=== PATIENT | male | born 1975 | race Caucasian/White ===

== ENCOUNTER 2020-05-27 13:09 | Outpatient (CLI) | payer OTHER, SELFPAY ==
--- NOTE | 2020-05-27 13:31 | CT_ITS ---
WS: [id number] CT scan of the head, 05/27/2020 Clinical Data: THUNDERCLAP HEADACHE Comparison: None. DLP: 925.[address] scans at [facility] use at least one of these dose optimization techniques: automat ed exposure control; mA and/or kV adjustment per patient size (includes targeted exams where dose is matched to clinical indication); or iterative reconstruction. Findings: The ventricular system is normal without shift. No recent infarct or hemorrhage is seen. There are no abnormal intracerebral masses. The cerebellum and brainstem are not remarkable. Bony windows of the skull and skull base show no fractures or erosions. The mastoid air cells, international sales manager al auditory canals, sella turcica, intraorbital contents, and paranasal sinuses are unremarkable. CT/CT head wo con* [id number] Impression: Negative CT scan of the head
== END 2020-05-27 13:10 | disposition home or self-care (01) ==
LOC: RADWPI 13:13
PROVIDERS: Family Provider Family Medicine; PCP Family Medicine; Visit Provider Family Medicine
DX: G44.53 Primary thunderclap headache (principal)
CPT/HCPCS: 70450

== ENCOUNTER 2020-05-28 12:58 | Outpatient (CLI) | payer OTHER, SELFPAY ==
--- NOTE | 2020-05-28 10:30 | CT_ITS ---
WS: [id number] CT scan of the head with IV contrast. Additional two-dimensional coronal and sagittal reconstruction was performed. MIP images were also performed. 05/28/2020 Clinical Data: Rule out Aneurysm Comparison: CT head, 05/27/2020 DLP: 429.[address] scans at [facility] use at least one of these dose optimization techniques: automat ed exposure control; mA and/or kV adjustment per patient size (includes targeted exams where dose is matched to clinical indication); or iterative reconstruction. Findings: The internal carotid arteries bifurcate normally into the anterior and middle cerebral arteries. No a neurysms are seen. There are no occlusions or stenoses. The basilar artery bifurcates normally into t he posterior cerebral arteries. No aneurysms are seen. The posterior communicating arteries appear to be normal. No recent infarct or hemorrhage is seen. The ventricular stem is normal. No abnormal cont rast enhancement of any structural curves. The cerebellum and brainstem are unremarkable. There are n o abnormal intracerebral masses. The mastoid air cells, internal auditory canals, sella turcica and i ntraorbital contents are normal. There is opacification of the inferior aspect of the left maxillary sinus consistent with chronic sinusitis. CT/CT angio head [id number] Impression: 1. Normal intracranial arterial circulation with no evidence of aneurysm or hem orrhage. 2. Negative for intracerebral abnormality. 3. Incidental chronic left maxillary sinusitis.
[2020-05-28] MEDS: iohexol 350 mg/mL 100 mL Btl IV (13:23)
== END 2020-05-28 12:59 | disposition home or self-care (01) ==
LOC: RADWPI 13:01
PROVIDERS: Family Provider Family Medicine; PCP Family Medicine; Visit Provider Specialist
DX: I72.9 Aneurysm of unspecified site (principal); J32.0 Chronic maxillary sinusitis; G44.53 Primary thunderclap headache
CPT/HCPCS: 70496; 96374; 96375; 99205; J1110; J1200; Q0162; Q9967

== ENCOUNTER → 2021-05-08 12:13 | Outpatient (BNVA) | payer OTHER, SELFPAY | PROVIDERS: PCP Family Medicine; Visit Provider Nurse Practitioner Family | DX: S99.922A Unspecified injury of left foot, initial encounter (principal); W20.8XXA Other cause of strike by thrown, projected or falling object, initial encounter; Z68.32 Body mass index [BMI] 32.0-32.9, adult | CPT/HCPCS: 73630 ==

== ENCOUNTER 2021-07-30 10:30 | Outpatient (CLI) | payer OTHER, SELFPAY ==
--- NOTE | 2021-07-30 10:35 | XR_ITS ---
WS: [id number] XR bone survey* [id number] REASON FOR EXAM: SACRAL BLASTIC LESION FINDINGS: The sacral blastic lesion is demonstrated to be a benign bone island in the posterior right iliac w ing adjacent to the sacral iliac joint on a CT scan of 09/20/2018. No change since then. Multiple images of the appendicular and axial skeleton demonstrate no significant bony abnormality. XR/XR bone survey* [id number] IMPRESSION: Benign bone lesion right iliac wing. Negative bone survey.
== END 2021-07-30 10:31 | disposition home or self-care (01) ==
LOC: RAD 10:32
PROVIDERS: PCP Family Medicine; Visit Provider Family Medicine
DX: M89.9 Disorder of bone, unspecified (principal)
CPT/HCPCS: 77075

== ENCOUNTER 2021-09-30 08:23 | Outpatient (CLI) | payer OTHER, SELFPAY ==
[2021-09-30 09:05] VITALS: BMI 32.8
--- NOTE | 2021-09-30 09:25 | NMCV_ITS ---
NM souleymane perf SPECT r/s* [id number] RadhaMalcolm Age: 45 Gender: M : 1975 Exam Date: 09/30/2021 10:02 Ordering Phys: Chris Ruvalcaba MD Technologist: JOSE ALFREDO Lovell Exam Location: [facility] Indications: CHEST PAIN STRESS TEST Please see separate stress test report in Ephiphany for full findings IMAGE PROTOCOL Rest/Stress 1 Exercise Day Radiopharmaceutical Dose (mCi) Administration Site Administered by Rest: Tc-99m 11.0 IV JOSE ALFREDO Lovell Sestamibi Stress:Tc-99m 32.8 IV JOSE ALFREDO Rowell Sestamibi Rest: 30-Sep-2021 60 Discovery 630 Stress: 30-Sep-2021 30 Discovery 630 Radiopharmaceutical was injected at 85 % maximum heart rate. Images obtained in supine and prone position. SPECT RESULTS Technical Quality: Excellent Raw Data Analysis: Normal Image Corrections: No attenuation or motion correction applied Summed Stress Score: 0 Summed Rest Score: 0 Summed Difference Score: 0 PERFUSION FINDINGS Fairly uniform myocardial tracer uptake with no significant perfusion abnormalities. FUNCTIONAL RESULTS (calculated via Gated SPECT) Stress Image LV EF (%): 73 Stress EDV (mL):93 TID: 0.66 Stress ESV (mL):25 FUNCTIONAL FINDINGS: Segmental wall motion analysis revealing no gross wall motion abnormalities IMPRESSIONS 1. Uniform myocardial tracer uptake with no significant perfusion of normalities. 2. Normal LV ejection fraction 73%. 3. LV wall motion analysis revealing no gross wall motion abnormalities. 4. Normal LV volume. No significant coronary ischemia, based on the above findings. No similar previous studies are available for comparison Dr Vicky Ivey MD [facility] (Electronically Signed) Final Date: 01 October 2021 06:27 S
--- NOTE | 2021-09-30 09:25 | ECG_ITS ---
[facility] Test Date: 2021-09-30 Pat Name: Malcolm Garcia Department: Room: Gender: Male Research Professional: Lacy Acosta : 1975 Requested By: Chris Cr Order Number: [id number] Alma MD: Vicky Ivey M.D. Interpretive Statements NAME OF STUDY: EXERCISE SESTAMIBI STRESS TEST INDICATION: Chest Pain, PROCEDURE: The baseline electrocardiogram showed normal sinus rhythm with diffuse nonspecific T wave changes.. At the baseline, the patient's blood pressure was 155/91 mm Hg with a heart rate of 87. The patient exercised for 7 minutes and 30 seconds on a standard Reid protocol. Patient attained a maximum heart rate of 153 beats per minute(87% of the maximum predicted heart rate) with a blood pressure at the peak exercise of 224/92 mm Hg. The EKG at the peak exercise revealed no significant changes. Patient did not have any chest pain or any significant arrhythmis with the exercise Sestamibi was injected 1 minute prior to the peak exercise. Patient was complaining of some chest tightness with exercise, relieved during the recovery. During the recovery phase, there were no new changes. Blood pressure at the end of the recovery phase was 165/97 mm Hg with a heart rate of 100 per minute. CONCLUSION: 1. Nonspecific EKG changes with the treadmill exercise 2. Exercise-induced chest tightness, resolved spontaneously 3. Fair exercise tolerance, attained a maximum of 10.2 METs 4. Sestamibi/Sestamibi perfusion results pending; see separate report. Electronically Signed On 10-03-2021 21:09:43 TELLER by Vicky Ivey M.D. [id number]
[2021-09-30 10:49] VITALS: PULSE 98
== END 2021-09-30 08:24 | disposition home or self-care (01) ==
LOC: CDL 08:25
PROVIDERS: PCP Family Medicine; Visit Provider Family Medicine
DX: R07.9 Chest pain, unspecified (principal)
CPT/HCPCS: 78452; 93017; A9500

== ENCOUNTER → 2021-10-12 10:20 | Outpatient (BNVA) | payer OTHER, SELFPAY | PROVIDERS: PCP Family Medicine; Visit Provider Specialist | DX: G43.019 Migraine without aura, intractable, without status migrainosus (principal) | CPT/HCPCS: 96372; 99213; 99214; J1885 ==

== ENCOUNTER 2023-09-16 20:13 | Emergency (ER) | payer OTHER, SELFPAY ==
[2023-09-16 20:16] VITALS: BMI 33.5
[2023-09-16 20:19] VITALS: BP 185/105; PULSE 94; RESP 16; TEMP 37; O2SAT 96
--- NOTE | 2023-09-16 20:32 | XRR_ITS ---
PROCEDURE INFORMATION: Exam: XR Chest Exam date and time: 09/16/2023 8:47 PM Age: 47 years old Clinical indication: Pain; Chest pressure; Additional info: Chest pain TECHNIQUE: Imaging protocol: Radiologic exam of the chest. Views: 1 view. COMPARISON: CR XR chest 2V* [id number] 11/18/2021 11:16 AM FINDINGS: Lungs: Lungs are clear. Pleural spaces: No pleural effusion. No pneumothorax. Heart/Mediastinum: Stable cardiomediastinal silhouette. Bones/joints: No acute osseous abnormality. XR/XR chest 1V portable [id number] IMPRESSION: No acute findings.
--- NOTE | 2023-09-16 20:32 | ECG_ITS ---
[facility] Test Date: 2023-09-16 Pat Name: Malcolm Garcia Department: Room: Gender: Male Registered Nurse Cardiac: : 1975 Requested By: Emory Nicole Order Number: [id number] Marquez MD: Makeda Mays M.D. Measurements Intervals [place] Rate: 82 P: 36 [place]: 167 QRS: 19 QRSD: 102 T: -7 QT: 372 QTc: 437 Interpretive Statements SINUS RHYTHM NONSPECIFIC T-WAVE ABNORMALITY No previous ECG available for comparison Electronically Signed On 09-17-2023 5:50:56 BEAN WEIGHER by Makeda Mays M.D. [email or web address]/store/NU/[id number] f
[2023-09-16 21:00] LABS: Basophils % 0.3 %; Eosinophils # 0.1 10^3/uL (0.0-0.8); Eosinophils % 1.1 %; Hematocrit 46.1 % (37-53); Lymphocytes # 1.5 10^3/uL (0.8-4.8); Lymphocytes % 24.1 %; Mean Corpuscular HGB Conc 35.8 g/dL (30-55); Mean Corpuscular Hemoglobin 30.7 pg (27-33); Mean Corpuscular Volume 85.7 fl (82-101); Mean Platelet Volume 9.6 fL (7.4-10.4); Monocytes # 0.4 10^3/uL (0.2-0.9); Monocytes % 6.1 %; Neutrophils # 4.33 10^3/uL (1.8-7.7); Neutrophils % 68.1 %; Nucleated Red Blood Cells % 0 %; Platelet Count 210 10^3/cmm (157-399); Red Blood Count 5.38 10^6/uL (3.85-5.65); Red Cell Distribution Width 11.9 % (12.1-15.1); White Blood Count 6.36 10^3/uL (3.29-11.43)
--- NOTE | 2023-09-16 21:12 | ED_ITS ---
HPI - Chest Pain General: Chief Complaint: Chest Pain Stated Complaint: chest pain\tightness Time Seen by Provider: 09/16/23 21:04 History of Present Illness: 47-year-old male presents emergency department with complaints of chest pain since approximate 11 AM today. He states he was showering and when bending over started having some crushing substernal chest pain that subsided and significantly improved to just a tight feeling across his chest. He states he did have nausea at the time without vomiting. He states at present his chest tightness is a dull achy type pain that he describes as a 3 out of 10 and nonradiating. He denies dizziness or lightheaded feeling. He denies nausea vomiting or diaphoresis or shortness of breath at present. Associated symptoms: Reports nausea Review of Systems General: Reports: 10 or more systems reviewed and unremarkable except in HPI and below Card: Reports: chest pain GI: Reports: nausea [facility] ED PFSH: Medical History Diabetes HTN (hypertension) Hypothyroid Surgical History History of appendectomy Family History Other Chronic kidney disease (CKD) Social History Smoking and tobacco/nicotine status: never used tobacco/nicotine Second hand smoke exposure: No Alcohol intake: current Alcohol intake frequency: holidays/special occasions only Substance/Drug Use: never Physical Exam Narrative: EXAM NARRATIVE: Constitutional: the patient appeared well nourished and normally developed. Vital signs as documented. HENMT: Head exam is unremarkable. Neck is without jugular venous distension, thyromegaly, or carotid bruits. Carotid upstrokes are brisk bilaterally. Eye: No scleral icterus or corneal arcus noted Resp: Lungs are clear to auscultation and percussion. Cardio: Cardiac exam reveals the PMI to be normally sized and situated. Rhythm is regular. First and second heart sounds normal. No murmurs, rubs or gallops. GI: Abdominal exam reveals normal bowel sounds, no masses, no organomegaly and no aortic enlargement. Soft, nontender to palpation. No obvious palpable masses noted. No hepatomegaly appreciated. Extremity: Extremities are non-edematous and both femoral and pedal pulses are normal. Moves all extremities well, she has sensation in all extremities. Neuro: Alert and oriented x4, person, place, time and situation. Cranial nerves II through XII are grossly intact, there is no focal neurological deficits that I can appreciate at present. Motor strength in the upper and lower extremities are equal and bilateral 5/5. Psych: Cooperative, calm, normal thought process, appropriate judgment. Skin: No lesions, rashes. Course Vital Signs: Vital signs: Vital Signs Temperature 98.6 F 09/16/23 20:19 Pulse Rate 91 09/16/23 22:39 Respiratory Rate 17 09/16/23 22:39 Blood Pressure 165/102 09/16/23 22:39 Pulse Oximetry 93 09/16/23 22:39 Oxygen Delivery Me thod Room Air 09/16/23 21:39 MDM - Chest Pain Medical Decision Making Physical exam completed and documented, laboratory to include CBC, CMP, cardiac enzymes twelve-lead EKG and chest x-ray. Patient has had a lot of stress in his life lately. Although he does have increased risk factors to include hypertension, hypercholesterolemia and diabetes, I suspect most likely that his chest discomfort today is due to his prolonged exposure to the elevated blood pressure and increase stressors. His primary care provider has per the patient had a recent change in his blood pressure medications. I will provide him amlodipine p.o. while here in the emergency department. Medical Records I reviewed the patient's medical records. Lab Data I reviewed the patient's lab results. 09/16/23 20:47 09/16/23 20:47 Radiology Impressions Chest X-Ray 09/16/23 20:32 IMPRESSION: No acute findings. Laboratory Results WBC 6.36 10^3/uL (3.29-11.43) 09/16/23 20:47 RBC 5.38 10^6/uL (3.85-5.65) 09/16/23 20:47 Hgb 16.50 g/dL (11.27-16.99) 09/16/23 20:47 Hct 46.1 % (37-53) 09/16/23 20:47 MCV 85.7 fl (82-101) 09/16/23 20:47 MCH 30.7 pg (27-33) 09/16/23 20:47 MCHC 35.8 g/dL (30-55) 09/16/23 20:47 RDW 11.9 % (12.1-15.1) L 09/16/23 20:47 Plt Count 210 10^3/cmm (157-399) 09/16/23 20:47 MPV 9.6 fL (7.4-10.4) 09/16/23 20:47 Neut % (Auto) 68.1 % 09/16/23 20:47 Lymph % (Auto) 24.1 % 09/16/23 20:47 [place] % (Auto) 6.1 % 09/16/23 20:47 Eos % (Auto) 1.1 % 09/16/23 20:47 Baso % (Auto) 0.3 % 09/16/23 20:47 Neut # (Auto) 4.33 10^3/uL (1.8-7.7) 09/16/23 20:47 Lymph # (Auto) 1.5 10^3/uL (0.8-4.8) 09/16/23 20:47 [place] # (Auto) 0.4 10^3/uL (0.2-0.9) 09/16/23 20:47 Eos # (Auto) 0.1 10^3/uL (0.0-0.8) 09/16/23 20:47 Baso # (Auto) 0.0 10^3/uL (0.0-0.1) 09/16/23 20:47 Nucleated RBC % (auto) 0 % 09/16/23 20:47 Nucleated RBCs # 0.0 /100WBC 09/16/23 20:47 PT 12.90 SECONDS (12.1-14.9) 09/16/23 20:47 INR 0.95 (0.8-1.2) 09/16/23 20:47 APTT 25.7 SECONDS (23.9-36.7) 09/16/23 20:47 Sodium 135 mmol/L (136-145) L 09/16/23 20:47 Potassium 3.4 mmol/L (3.5-5.1) L 09/16/23 20:47 Chloride 97 mmol/L (98-107) L 09/16/23 20:47 Carbon Dioxide 25 mmol/L (22-29) 09/16/23 20:47 Anion Gap 16.4 (5-19) 09/16/23 20:47 BUN 11 mg/dL (6-20) 09/16/23 20:47 Creatinine 1.0 mg/dL (0.7-1.2) 09/16/23 20:47 GFR Calculation 80.1 mL/min (90-130) L 09/16/23 20:47 Glucose 217 mg/dL (65-115) H 09/16/23 20:47 Calculated Osmolality 286 mOsm/kg (285-295) 09/16/23 20:47 Calcium 10.5 mg/dL (8.5-10.5) 09/16/23 20:47 Total Bilirubin 0.8 mg/dL (0.15-1.2) 09/16/23 20:47 AST 63 U/L (0-40) H 09/16/23 20:47 ALT 82 U/L (0-41) H 09/16/23 20:47 Alkaline Phosphatase 104 U/L (40-130) 09/16/23 20:47 Troponin T Baseline 11 ng/L (0-15) 09/16/23 20:47 Troponin T 120 Minute 9.83 ng/L (0-15) 09/16/23 22:09 Delta Troponin T -1.17 ABS# (0-10) L 09/16/23 22:09 Total Protein 7.2 g/dL (6.6-8.7) 09/16/23 20:47 Albumin 4.6 g/dL (3.5-5.2) 09/16/23 20:47 Globulin 2.6 g/dL (1.3-4.6) 09/16/23 20:47 Urine Color Yellow (Yellow) 09/16/23 22:03 Urine Appearance Clear (CLEAR) 09/16/23 22:03 Urine pH 6.5 (5-7) 09/16/23 22:03 Ur Specific [place] 1.025 (1.005-1.030) 09/16/23 22:03 Urine Protein 1+ (Negative) H 09/16/23 22:03 Urine Glucose (UA) 2+ (Normal) H 09/16/23 22:03 Urine Ketones Negative (Negative) 09/16/23 22:03 Urine Blood 2+ (Negative) H 09/16/23 22:03 Urine Nitrate Positive (Negative) H 09/16/23 22:03 Urine Bilirubin 1+ (Negative) H 09/16/23 22:03 Urine Urobilinogen 1 mg/dL (Negative) H 09/16/23 22:03 Ur Leukocyte Esterase Trace (Negative) H 09/16/23 22:03 Urine RBC Rare /hpf (0-2) 09/16/23 22:03 Urine WBC Rare /hpf (0-5) 09/16/23 22:03 Ur Squamous Epith Cells 0-4 /hpf (0-5) H 09/16/23 22:03 Amorphous Sediment Trace /hpf 09/16/23 22:03 Urine Bacteria None /hpf (NONE) 09/16/23 22:03 Urine Mucus 3+ /hpf 09/16/23 22:03 All radiology interpretation(s) finalized by discharge Discharge Plan Discharge Patient Disposition: Home Clinical Impression: Atypical chest pain, Hypertension, uncontrolled, Acute UTI Condition: Stable Prescriptions: New amlodipine 5 mg tablet 5 mg PO DAILY Qty: 30 1RF Macrobid 100 mg capsule 100 mg PO Q12H 7 Days Qty: 14 0RF Rx Instructions: must administer with a meal/food No Action sumatriptan succinate [Imitrex] 100 mg tablet 100 mg PO Q2H PRN (Reason: migraine headache) Qty: 9 2RF Rx Instructions: do not exceed 2 doses per 24 hrs lisinopril 10 mg tablet 10 mg PO BID levothyroxine 112 mcg capsule 112 mcg PO .4 days a week aspirin 81 mg tablet,delayed release (DR/EC) 81 mg PO DAILY Victoza 3-Froy 0.6 mg/0.1 mL (18 mg/3 mL) pen injector 1.8 mg SUBCUT DAILY levothyroxine 125 mcg capsule 125 mcg PO .three days a week Tresiba FlexTouch U-100 100 unit/mL (3 mL) insulin pen 34 unit SUBCUT DAILY insulin aspart U-100 [Novolog U-100 Insulin aspart] 100 unit/mL solution 5 unit SUBCUT TID Rx Instructions: SLIDING SCALE Humira 40 mg/0.8 mL syringe kit 40 mg SUBCUT Q14D topiramate [Topamax] 50 mg tablet 50 mg PO DAILY Qty: 30 11RF Discharge Orders: Discharge ED (Routine); Ordered 09/16/23 Ordered By: Freddy Rae Referrals: Chris Ruvalcaba MD [Primary Care Provider] - Discharge Diet: Low Salt Discharge Activity: Resume usual activity Patient Instructions: Opioid Safety, Pain Management Activity Restrictions/Additional Instructions: Activity Restrictions/Additional Instructions: Thank you for choosing [facility] for your healthcare needs today. Please realize that you were seen in the Emergency Department and that we are providing you with an emergency medical screening exam and this may not be complete and all inclusive of all the testing and or medical work-up that you may need to determine your ailment or severity of your illness. It is very important that you follow-up as instructed with your Primary care provider or Specialist for additional evaluation and to discuss your medical treatment plan. You may return to the Emergency Department should you have concerns or if your condition changes or worsens in any way. Coding Level of Care Code ED Supervisor [employer] for Jason Davis
[2023-09-16 21:16] LABS: INR 0.95 (0.8-1.2)
[2023-09-16 21:17] LABS: Partial Thromboplastin Time 25.7 SECONDS (23.9-36.7)
[2023-09-16 21:22] LABS: Troponin(5th) Baseline 11 ng/L (0-15)
[2023-09-16 21:23] LABS: Alanine Aminotransferase 82 U/L (0-41); Albumin Level 4.6 g/dL (3.5-5.2); Alkaline Phosphatase 104 U/L (40-130); Anion Gap 16.4 (5-19); Aspartate Amino Transferase 63 U/L (0-40); Blood Urea Nitrogen 11 mg/dL (6-20); Calcium 10.5 mg/dL (8.5-10.5); Carbon Dioxide 25 mmol/L (22-29); Chloride 97 mmol/L (98-107); Globulin 2.6 g/dL (1.3-4.6); Glomerular Filtration Rate 80.1 mL/min (90-130); Glucose 217 mg/dL (65-115); Osmolality Calculated 286 mOsm/kg (285-295); Potassium 3.4 mmol/L (3.5-5.1); Sodium 135 mmol/L (136-145); Total Bilirubin 0.8 mg/dL (0.15-1.2); Total Protein 7.2 g/dL (6.6-8.7)
[2023-09-16 21:39] VITALS: BP 186/105; PULSE 79; RESP 22; O2SAT 95
[2023-09-16 22:19] LABS: Bilirubin Urine 1+ (Negative); Blood Urine 2+ (Negative); Glucose Urine UA 2+ (Normal); Ketones Urine Negative (Negative); Leukocyte Esterase Urine Trace (Negative); Nitrate Urine Positive (Negative); Protein Urine 1+ (Negative); Specific Gravity, Urine 1.025 (1.005-1.030); Urine Appearance Clear (CLEAR); Urine Color Yellow (Yellow); Urobilinogen Urine 1 mg/dL (Negative); pH Urine 6.5 (5-7)
[2023-09-16 22:20] LABS: Add Urine Culture? Yes; Add Urine Microscopic? YES; Amorphous Sediment Urine TRACE /hpf; Mucus Urine 3+ /hpf; RBC Urine RARE /hpf (0-2); Squamous Epithelial Cell Urine 0-4 /hpf (0-5); WBC Urine RARE /hpf (0-5)
--- NOTE | 2023-09-16 22:32 | ECG_ITS ---
[facility] Test Date: 2023-09-16 Pat Name: Malcolm Garcia Department: Room: Gender: Male Endoscopy Support Specialist: : 1975 Requested By: Emory Nicole Order Number: [id number] Alma MD: Makeda Mays M.D. Measurements Intervals [place] Rate: 81 P: 36 TN: 174 QRS: 10 QRSD: 95 T: -26 QT: 373 QTc: 434 Interpretive Statements SINUS RHYTHM NONSPECIFIC T-WAVE ABNORMALITY Compared to ECG 09/16/2023 20:18:06 No significant changes Electronically Signed On 09-17-2023 5:51:30 LEAF SIZE PICKER by Makeda Mays M.D. [id number]
[2023-09-16 22:35] LABS: Troponin 5 2HR 9.83 ng/L (0-15); Troponin 5 2HR Delta -1.17 ABS# (0-10)
[2023-09-16] MEDS: amlodipine 10 mg Tablet PO (22:38)
[2023-09-16 22:39] VITALS: BP 165/102; PULSE 91; RESP 17; O2SAT 93
[2023-09-16 22:51] VITALS: BP 157/91; PULSE 80; RESP 17; O2SAT 94
== END 2023-09-16 22:57 | disposition home or self-care (01) ==
PROVIDERS: Emergency Medicine; Emergency Provider Internal Medicine; PCP Family Medicine
DX: R07.89 Other chest pain (principal); I10 Essential (primary) hypertension; N39.0 Urinary tract infection, site not specified; Z79.82 Long term (current) use of aspirin; Z79.4 Long term (current) use of insulin; E11.9 Type 2 diabetes mellitus without complications
CPT/HCPCS: 36415; 71045; 80053; 81001; 84484; 85025; 85610; 85730; 87086; 93005; 99285

== ENCOUNTER → 2023-09-25 15:26 | Outpatient (BNVA) | payer OTHER, SELFPAY | PROVIDERS: PCP Family Medicine; Referring Provider Family Medicine; Visit Provider Specialist | DX: M25.511 Pain in right shoulder (principal); G89.29 Other chronic pain | CPT/HCPCS: 73030 ==

== ENCOUNTER 2023-10-26 15:40 | Outpatient (CLI) | payer OTHER, SELFPAY ==
--- NOTE | 2023-10-26 16:00 | MR_ITS ---
WS: [id number] MRI RIGHT SHOULDER NONCONTRAST TECHNIQUE: Sagittal T2, coronal T1, T2 and proton density imaging. Axial gradient PDE imaging. CLINICAL INFORMATION: shoulder pain COMPARISON: None. FINDINGS: Mild degenerative narrowing AC joint with slight subacromial fluid. Mild downsloping acromion. Tendin opathy distal supraspinatus with tiny intrasubstance tear. Normal infraspinatus. Mild tendinopathy in fraspinatus. Normal teres minor. Normal biceps tendon within the bicipital groove. Intra-articular bi ceps tendon appears intact. Glenoid labrum appears grossly normal. Biceps labral anchor appears intact. IMPRESSION: 1. Mild degenerative arthritis AC joint with edema and subacromial fluid. Mild downsloping of the ac romion. 2. Tendinopathy supraspinatus and infraspinatus. Tiny intrasubstance tear distal supraspinatus. 3. Rotator cuff is otherwise normal. 4. Biceps tendon appears intact within the bicipital groove. 5. Normal intra-articular biceps tendon.
== END 2023-10-26 15:41 | disposition home or self-care (01) ==
LOC: RAD 15:40
PROVIDERS: PCP Family Medicine; Visit Provider Specialist
DX: M19.011 Primary osteoarthritis, right shoulder (principal); M75.101 Unspecified rotator cuff tear or rupture of right shoulder, not specified as traumatic
CPT/HCPCS: 73221

== ENCOUNTER 2025-08-11 09:39 | Outpatient (CLI) | payer OTHER, SELFPAY ==
--- NOTE | 2025-08-11 | ECG_ITS ---
[email or web address] Test Date: 2025-08-11 Pat Name: Malcolm Garcia Department: Room: Gender: Male Wood Lather: : 1975 Requested By: Chris Cr Order Number: [id number] Alma MD: Vicky Ivey M.D. Interpretive Statements Lung unchanged pre/post procedure; Intraprocedure shortess of breath; Symptoms resoled by discharge PROCEDURE: At the baseline, the EKG revealed normal sinus rhythm with a diffuse nonspecific T wave changes. The baseline heart was 75 bpm with a blood pressue of 148/74 mm of Hg Lexiscan was infused over a period of 20 seconds. A total of 0.4 milligrams of Lexiscan was infused. The stress phase was continued for a total of 5 minutes. Heart rate at the end of the stress phase was 94 bpm with a blood pressure 138/74 mm of Hg. The EKG at the peak infusion revealed no significant changes. Sestamibi was injected 20 seconds after the Lexiscan infusion. Heart rate at the end of the recovery phase was 91 bpm with a blood pressure of 142/75 mm of Hg. CONCLUSION: 1. No significant EKG changes with the LexiScan infusion 2. No LexiScan induced chest pain or cardiac arrhythmia 3. Normal blood pressure and heart rate response 4. Sestamibi/sestamibi perfusion scan pending; see separate report. Electronically Signed On 08-12-2025 22:44:15 CDT by Vicky Ivey M.D. [id number] [id number]
[2025-08-11 10:00] VITALS: BMI 34.2
--- NOTE | 2025-08-11 10:20 | NMCV_ITS ---
NM souleymane perf SPECT r/s* [id number] Malcolm Garcia Age: 49 Gender: M : 1975 Exam Date: 08/11/2025 10:38 Ordering Phys: Chris Ruvalcaba MD Technologist: JOSE ALFREDO Gomes Exam Location: [facility] Indications: CP STRESS TEST Please see separate stress test report in Ephiphany for full findings IMAGE PROTOCOL Rest/Stress 1 Lexiscan Day Radiopharmaceutical Dose (mCi) Administration Site Administered by Rest: Tc-99m 10.4 IV JOSE ALFREDO Gomes Sestamibi Stress:Tc-99m 32.6 IV JOSE ALFREDO Rowell Sestamibi Rest: 11-Aug-2025 60 Discovery 630 Stress: 11-Aug-2025 30 Discovery 630 0.4mg Lexiscan. Images obtained in supine and prone position. SPECT RESULTS Technical Quality: Good Raw Data Analysis: Normal Image Corrections: No attenuation or motion correction applied Summed Stress Score: 0 Summed Rest Score: 0 Summed Difference Score: 0 PERFUSION FINDINGS Uniform myocardial tracer uptake with no significant perfusion abnormalities FUNCTIONAL RESULTS (calculated via Gated SPECT) Stress Image LV EF (%): 69 Stress EDV (mL):105 TID: 1.02 Stress ESV (mL):33 FUNCTIONAL FINDINGS: Segmental wall motion analysis revealing no gross wall motion abnormalities IMPRESSIONS 1. Myocardial perfusion imaging revealing uniform myocardial tracer uptake with no significant perfusion abnormalities 2. Normal LV ejection fraction of 69%. 3. LV wall motion analysis revealing no gross wall motion abnormalities. 4. Normal LV volume Low probability for coronary ischemia, based on the above findings Dr Vicky Ivey MD [facility] (Electronically Signed) Final Date: 12 August 2025 09:03 S
[2025-08-11 11:22] VITALS: BP 142/75; PULSE 90
== END 2025-08-11 09:40 | disposition home or self-care (01) ==
LOC: CDL 09:40
PROVIDERS: PCP Family Medicine; Visit Provider Family Medicine
DX: R06.09 Other forms of dyspnea (principal); R07.9 Chest pain, unspecified; R94.39 Abnormal result of other cardiovascular function study
CPT/HCPCS: 36415; 78452; 93017; 96374; A9500; J2785

== ENCOUNTER 2025-08-12 14:37 | Outpatient (CLI) | payer OTHER, SELFPAY ==
--- NOTE | 2025-08-12 14:42 | CTR_ITS ---
PROCEDURE INFORMATION: Exam: CTA Head With Contrast, Arteriography Exam date and time: 08/12/2025 3:03 PM Age: 49 years old Clinical indication: Pain; Headache when standing or walking x 5 months; Additional info: Persistent headaches TECHNIQUE: Imaging protocol: Computed tomographic angiography of the head with contrast. Exam focused on the arteries. 3D rendering (Not supervised by radiologist): MIP and/or 3D reconstructed images were created by the technologist. Radiation optimization: All CT scans at this facility use at least one of these dose optimization techniques: automated exposure control; mA and/or kV adjustment per patient size (includes targeted exams where dose is matched to clinical indication); or iterative reconstruction. Contrast material: OMNI 350; Contrast volume: 100 ml; Contrast route: INTRAVENOUS (IV); COMPARISON: CT angio head [id number] 05/28/2020 1:15 PM RADIATION DOSE METRICS: Total DLP (mGy-cm): 1313.73 FINDINGS: ANTERIOR CIRCULATION: Right internal carotid artery: Intracranial segment is patent with no significant stenosis. No aneurysm. Right middle cerebral artery: No occlusion or significant stenosis. No aneurysm. Right anterior cerebral artery: No occlusion or significant stenosis. No aneurysm. Left internal carotid artery: Intracranial segment is patent with no significant stenosis. No aneurysm. Left middle cerebral artery: No occlusion or significant stenosis. No aneurysm. Left anterior cerebral artery: No occlusion or significant stenosis. No aneurysm. POSTERIOR CIRCULATION: Right vertebral artery: No occlusion or significant stenosis. No aneurysm. Left vertebral artery: No occlusion or significant stenosis. No aneurysm. Basilar artery: No occlusion or significant stenosis. No aneurysm. Right posterior cerebral artery: No occlusion or significant stenosis. No aneurysm. Left posterior cerebral artery: No occlusion or significant stenosis. No aneurysm. Brain: No definite mass, mass effect, or midline shift. Cerebral ventricles: No ventriculomegaly. Bones/joints: Unremarkable. No acute fracture. Soft tissues: Unremarkable. Other findings: Less PROCEDURE INFORMATION: Exam: CTA Neck With Contrast Exam date and time: 08/12/2025 3:03 PM Age: 49 years old Clinical indication: Pain; Headache when standing or walking x 5 months; Additional info: Persistent headaches TECHNIQUE: Imaging protocol: Computed tomographic angiography of the neck with contrast. Exam focused on the cervical segments of the vasculature. 3D rendering (Not supervised by radiologist): MIP and/or 3D reconstructed images were created by the technologist. Radiation optimization: All CT scans at this facility use at least one of these dose optimization techniques: automated exposure control; mA and/or kV adjustment per patient size (includes targeted exams where dose is matched to clinical indication); or iterative reconstruction. Contrast material: OMNI 350; Contrast volume: 100 ml; Contrast route: INTRAVENOUS (IV); COMPARISON: CT angio head [id number] 05/28/2020 1:15 PM RADIATION DOSE METRICS: Total DLP (mGy-cm): 1313.73 FINDINGS: Right common carotid artery: No stenosis. No dissection or occlusion. Right internal carotid artery: No stenosis of the extracranial segment. No dissection or occlusion. Right external carotid artery: No occlusion or stenosis of the origin. Left common carotid artery: No stenosis. No dissection or occlusion. Left internal carotid artery: No stenosis of the extracranial segment. No dissection or occlusion. Left external carotid artery: No occlusion or stenosis of the origin. Right vertebral artery: No stenosis. No dissection or occlusion. Left vertebral artery: Isolated left vertebral artery arising directly from the aortic arch. Soft tissues: Normal. No significant soft tissue swelling. Bones/joints: No acute fracture. CT/CT angio headneck* [id number] IMPRESSION: No large vessel stenosis or occlusion. IMPRESSION: No hemodynamically significant stenosis. REFERENCES: NASCET CRITERIA. The degree of stenosis in the cervical segment of the internal carotid artery is based on NASCET criteria. Normal is no stenosis. Mild is less than 50% stenosis. Moderate is 50-69% stenosis. Severe is 70% to 99% stenosis. Total occlusion is no detectable patent lumen.
[2025-08-12] MEDS: iohexol 350 mg/mL 500 mL Btl (per mL) IV (15:11)
== END 2025-08-12 14:38 | disposition home or self-care (01) ==
LOC: RAD 14:38
PROVIDERS: PCP Family Medicine; Visit Provider Family Medicine
DX: R51.9 Headache, unspecified (principal)
CPT/HCPCS: 70496; 70498

== ENCOUNTER 2025-08-15 14:09 | Outpatient (CLI) | payer OTHER, SELFPAY ==
--- NOTE | 2025-08-15 14:23 | USCV_ITS ---
Malcolm Garcia Age: 49 Gender: M : 1975 Exam Date: 08/15/2025 14:31 Ordering Phys: Chris Ruvalcaba MD Technologist: LUIS ENRIQUE Exam Location: [facility] [place] Indication: Exertional Dyspnea BP: 146 / 23 HR: 76 Rhythm: Sinus Technical Quality: Adequate MEASUREMENTS (Male / Female) Normal Values 2D ECHO LV Diastolic Diameter PLAX 4.4 cm 4.2 - 5.9 / 3.9 - 5.3 cm IVS Diastolic Thickness 0.9 cm 0.6 - 1.0 / 0.6 - 0.9 cm IVS Systolic Thickness 1.7 cm LVPW Diastolic Thickness 1.5 cm 0.6 - 1.0 / 0.6 - 0.9 cm LVPW Systolic Thickness 1.3 cm LVOT Diameter 2.0 cm LV Ejection Fraction 2D Teich 70.2 % LV Ejection Fraction MOD 4C 55.5 % LV Ejection Fraction MOD 2C 84.2 % LV Ejection Fraction 2C AL 84.7 % LA Diameter 3.2 cm RA Systolic Volume 4C AL 51.3 ml RA Systolic Volume 4C MOD 48.0 ml LA Sys Volume AL 35.8 cm cubed LA Sys Volume Index AL 15.1 cm cubed/m squared Aorta at Sinotubular Diameter 2.4 cm M-MODE LA Ao Ratio MM 1.6 AV Cusp Separation MM 1.8 cm DOPPLER AV Peak Velocity 159.0 cm/s LVOT Peak Velocity 117.0 cm/s AV Area Cont Eq vti 2.6 cm squared AV Area Cont Eq pk 2.4 cm squared MV Peak Velocity 88.0 cm/s MV Area PHT 3.5 cm squared Mitral E to A Ratio 1.0 TR Peak Velocity 101.0 cm/s TR Peak Gradient 4.1 mmHg TV Peak E Velocity 72.0 cm/s PV Peak Velocity 140.0 cm/s FINDINGS Left Ventricle Normal left ventricular size and systolic function, EF 55%. No regional wall motion abnormalities. Right Ventricle Normal right ventricular size and systolic function. Right Atrium Mildly increased right atrial size. Mobile structure on the right atrium, most likely represent prominent eustachian valve Left Atrium Normal left atrial size. IA Septum Normal appearance of the interatrial septum. Mitral Valve Trace mitral valve regurgitation. Aortic Valve Minimal thickened aortic valve. Tricuspid Valve No gross abnormalities noted Pulmonic Valve No gross abnormalities noted Pericardium No pericardial effusion. Aorta Normal diameter of the aortic root and ascending thoracic aorta. IVC Inferior vena cava not visualized. CONCLUSIONS Normal left ventricular size and systolic function, EF 55%. No regional wall motion abnormalities. Mildly increased right atrial size. Mobile structure on the right atrium, most likely represent prominent eustachian valve. Minimal thickened aortic valve. Trace mitral valve regurgitation. There is no pericardial effusion. There are no intracardiac masses. No similar previous studies are available for comparison Dr Vicky Ivey MD FACC (Electronically Signed) Final Date: 15 August 2025 22:58 S
== END 2025-08-15 14:10 | disposition home or self-care (01) ==
LOC: RAD 14:10
PROVIDERS: PCP Family Medicine; Visit Provider Family Medicine
DX: R06.09 Other forms of dyspnea (principal); I51.7 Cardiomegaly; I35.8 Other nonrheumatic aortic valve disorders
CPT/HCPCS: 93306

== ENCOUNTER 2025-09-02 10:00 | Outpatient (CLI) | payer OTHER, SELFPAY | END 2025-09-02 10:01 | disposition home or self-care (01) | LOC: RT 10:01 | PROVIDERS: PCP Family Medicine; Visit Provider Family Medicine | DX: R06.09 Other forms of dyspnea (principal) | CPT/HCPCS: 94010; 94618; 94726; 94729 ==

== ENCOUNTER 2025-09-29 06:11 | Outpatient (CLI) | payer OTHER, SELFPAY ==
--- NOTE | 2025-09-29 06:30 | USCV_ITS ---
Malcolm Garcia Age: 49 Gender: M : 1975 Exam Date: 09/29/2025 06:18 Ordering Phys: Sarah Amos MD ([email or web address]) Technologist: LUIS ENRIQUE Exam Location: [facility] [place] Indication: htn Aortic Velocity @ SMA (cm/s) 139 RIGHT KIDNEY LEFT KIDNEY Velocity (cm/s) Velocity (cm/s) Sys/[place] Sys/[place] Resistive Index Resistive Index 64.9 / 26.5 0.59 Proximal Renal Artery 64.8 / 20.9 0.68 68.2 / 26.5 0.61 Mid Renal Artery 64.8 / 24.8 0.62 73.3 / 24.6 0.66 Distal Renal Artery 78.3 / 23.4 0.70 79.0 / 23.2 0.71 Hilar 41.5 / 17.4 0.58 24.2 / 8.6 0.64 Upper Pole 25.0 / 11.3 0.55 30.0 / 9.0 0.70 Mid Pole 34.1 / 13.3 0.61 35.7 / 10.3 0.71 Lower Pole 25.3 / 8.3 0.67 0.49 Renal Aortic Ratio 0.46 Accleration Time (sec) 481.30 Hilar 260.30 137.90 Upper Pole 88.20 139.00 Mid Pole 98.70 114.40 Lower Pole 90.30 10.4 Kidney Length (cm) 10.5 CONCLUSIONS No sonographic evidence of hemodynamically significant renal artery stenosis bilaterally. Normal resistive indices No hydronephrosis Gui Gonsalez MD (Electronically Signed) Final Date: 29 September 2025 08:33 S
== END 2025-09-29 06:12 | disposition home or self-care (01) ==
LOC: RAD 06:12
PROVIDERS: PCP Family Medicine; Visit Provider Internal Medicine Cardiovascular Disease
DX: I10 Essential (primary) hypertension (principal); I65.23 Occlusion and stenosis of bilateral carotid arteries
CPT/HCPCS: 93975

== ENCOUNTER 2025-10-23 15:18 | Outpatient (CLI) | payer OTHER, SELFPAY ==
--- NOTE | 2025-10-23 15:30 | CT_ITS ---
WS: [id number] CTA THORACIC AORTA WITH AND WITHOUT HISTORY: Coarctation of aorta, blood pressure issues. TECHNIQUE: CTA imaging of the thorax is performed with and without contrast. After noncontrast imaging is performed, CT angiogram is performed during injection of Omnipaque 350; 100 mL IV.. Sagittal and coronal reconstructions, sagittal and coronal MIP imaging is submitted. All CT scans at [facility] use at least one of these dose optimization techniques: automated exposure control; mA and/or kV adjustment per patient size (includes targeted exams where dose is matched to clinical indication); or iterative reconstruction. DLP: 1029.21 mGy.cm COMPARISON: 08/12/2025 Good contrast opacification of the aorta and the pulmonary arteries. Thoracic aorta is normal size. Ascending aorta is normal size with no aneurysm or dissection. Diameter of the aorta through the arch and the descending aorta is normal. There is no focal narrowing posterior to the origin of the LEFT s ubclavian artery. Great vessels arise normally from the arch. The LEFT vertebral artery arises directly from the arch. There is good contrast opacification in the LEFT subclavian artery through the axillary artery. The contrast was injected into the RIGHT upper extremity venous system therefore the RIGHT subclavian artery is not as well visualized but it does appear patent without stenosis identified. Segments of the proximal RIGHT subclavian and axillary artery are partially obscured by the venous contrast injection. Heart is normal size. No pericardial or pleural effusions. Lungs are well aerated. No pulmonary mass or nodule. No endobronchial lesions. No mediastinal or hilar adenopathy. No chest wall abnormalities. No adrenal mass. Mildly contracted gallbladder. No destructive bone lesions. CT/CT angio chest [id number] IMPRESSION: 1. No thoracic aorta coarctation. Normal caliber of the aorta. 2. There is good contrast opacification of the great vessels including the LEF T subclavian artery. The RIGHT subclavian artery is not as well visualized as t he contrast was injected in the RIGHT upper extremity and there is artifact fro m the dense contrast obscuring portions of the RIGHT subclavian and axillary ar alexsander. 3. No mediastinal or hilar adenopathy. No neck mass.
[2025-10-23] MEDS: iohexol 350 mg/mL 500 mL Btl (per mL) IV (15:59)
== END 2025-10-23 15:19 | disposition home or self-care (01) ==
LOC: RAD 15:19
PROVIDERS: PCP Family Medicine; Visit Provider Internal Medicine Cardiovascular Disease
DX: Q25.1 Coarctation of aorta (principal); R93.89 Abnormal findings on diagnostic imaging of other specified body structures
CPT/HCPCS: 71275